=== PATIENT | male | born 1955 | race Caucasian/White ===

== ENCOUNTER → 2018-10-26 | Outpatient (CLI) | payer OTHER ==
--- NOTE | 2018-10-26 14:40 | PCVCIMAG ---
APPROVED REPORT Study performed: 10/26/2018 11:49:14 Exam: Stress Echocardiogram Indication: Atrial Fibrillation, CAD Patient Location: Echo lab Stress Nurse: Vibha Day RN Room #: 2 Status: routine Ht: 6 ft 1 in HR: 61 bpm BP: 138/90 mmHg Rhythm: NSR Medical History Medical History: Atrial Fibrillation, CAD non obstructive, Hyperlipidemia Cardiac Risk Factors: Hyperlipidemia Previous Cardiac Procedures: cardioversion Pretest Chest Pain Characteristics: No chest pain Exercise History: Physically active Procedure The patient underwent an Exercise Stress Test using the Jonah Protocol. Blood pressure, heart rate, and EKG were monitored. An Echocardiogram was performed by vehicle glass technician in four stages in quad fashion. At peak stress, four selected images were obtained and placed side by side with resting images for comparison. Stress Test Details Stress Test: Exercise stress testing was performed using a Jonah protocol. HR Resting HR: 61 bpmMax Heart Rate (APMHR): 156 bpm Max HR Achieved: 139 bpmTarget HR (85% APMHR): 132 bpm % of APMHR: 89 Recovery HR: 82 bpm HR response to stress: Normal HR response to stress BP Resting BP: 138/90 mmHg Max BP: 206/90 mmHg Recovery BP: 160/84 mmHg BP response to stress: Normal blood pressure response to stress. ECG Resting ECG: Sinus Rhythm Stress ECG: Sinus Rhythm ST Change: Non-ischemic Maximum ST Deviation: -0.80 mm Arrhythmia: Rare PACs Recovery ECG: Sinus Rhythm Recovery ST Change: Non-ischemic Recovery ST Deviation: -0.10 mm Recovery Arrhythmia: rare PACs Clinical Reason for Termination: Maximal effort Stress Symptoms: none Exercise duration: 13 min 43 sec Highest Stage Achieved: Stage 5: 5.0 mph at 18% grade. Exercise capacity: 17.5 METs Overall Exercise Capacity for Age: Excellent Scale: Active Angina Score: None No complications. Stress ECG Conclusion The patient exercised according to the JONAH protocol for 13:43 mins; achieving a work level of 17.5 METS. The resting heart rate of 61 bpm sheryl to a maximum heart rate of 139 bpm. This value represents 89% of the maximal, age-predicted heart rate. The resting blood pressure of 138/90 mmHg, sheryl to a maximum blood pressure of 206/90 mmHg. The exercise test was stopped due to fatigue . Butler Treadmill Score is 17.0 which is Low risk. Pre-Stress Echo The resting Echocardiogram showed normal left ventricular contractility with an estimated Ejection Fraction of about 55-60%. Normal wall motion in all segments on baseline images. Post-Stress Echo The stress Echocardiogram showed normal left ventricular contractility with an estimated Ejection Fraction of about 65-70%. Clinical No clinical or ECG evidence for ischemia. Conclusion Clinical Response: Non-ischemic Exercise Capacity: Superior Stress ECG Response: Non-ischemic Stress Echo Images: Non-ischemic No prior study available for comparison.
== END | disposition home or self-care (01) ==
LOC: PCVCIMAG 11:25
PROVIDERS: ATTEND Internal Medicine Cardiovascular Disease
DX: I48.91 Unspecified atrial fibrillation (principal); R93.1 Abnormal findings on diagnostic imaging of heart and coronary circulation
CPT/HCPCS: 93325; 93351